=== PATIENT | female | born 1970 | race Asian ===

== ENCOUNTER 2016-12-25 10:34 | Emergency (ER) | payer OTHER ==
[~2016-12-25] VITALS: Ht 154.9 cm; Wt 95.7 kg
[2016-12-25 10:55] VITALS: TEMP 99.1
[2016-12-25 15:45] VITALS: BP 126/84
== END 2016-12-25 15:45 | disposition home or self-care (01) ==
LOC: ED 10:34
DX: R10.9 Unspecified abdominal pain (principal)
CPT/HCPCS: 81000; 96372; 99283; J1885; J2405

== ENCOUNTER 2018-04-16 22:51 | Inpatient (IN) | payer OTHER ==
[~2018-04-16] VITALS: Ht 154.9 cm; Wt 97.7 kg
[2018-04-16 22:57] VITALS: BP 137/62; TEMP 100.6
[2018-04-16] MEDS ORDERED: LISINOP/HCTZ1 TA2 PO (23:03)
[2018-04-16 23:41] LABS: PLATELET COUNT 355 K/uL (152-353)
[2018-04-16 23:49] LABS: POTASSIUM 2.6 mmol/L (3.6-5.2)
[2018-04-17 05:24] VITALS: BP 129/83; TEMP 99.4
[2018-04-17 10:20] VITALS: BP 129/83; TEMP 99.4; Ht 154.9 cm; Wt 97.7 kg
[2018-04-17 12:04] VITALS: BP 116/70; TEMP 98.7
[2018-04-17 16:24] VITALS: BP 19/65; TEMP 98.6
[2018-04-17 20:00] VITALS: BP 109/74; TEMP 99
[2018-04-18 00:03] VITALS: BP 97/62; TEMP 98.7
[2018-04-18 04:00] VITALS: BP 97/60; TEMP 99
--- NOTE | 2018-04-18 06:54 | NUR ---
04/18/18 0500: ATTEMPTED TO RESTART IV, VEIN FINDER USED ,STUCK X1 BUT PT WANTED IV REMOVED AND DID NOT WANT TO BE STUCK AGAIN.
[2018-04-18 08:01] VITALS: BP 120/79; TEMP 98.5
[2018-04-18 10:27] LABS: PLATELET COUNT 298 K/uL (152-353)
[2018-04-18 12:03] VITALS: BP 96/61; TEMP 98.5
[2018-04-18 16:03] VITALS: BP 117/76; TEMP 98.1
[2018-04-18 19:57] VITALS: BP 125/72; TEMP 98.5
[2018-04-19] VITALS: BP 100/59; TEMP 97.9
[2018-04-19 04:06] VITALS: BP 102/60; TEMP 97.7
[2018-04-19 08:03] VITALS: BP 137/89; TEMP 98.6
[2018-04-19 08:41] LABS: PLATELET COUNT 304 K/uL (152-353)
[2018-04-19 08:55] LABS: POTASSIUM 3.8 mmol/L (3.6-5.2)
[2018-04-19] MEDS ORDERED: ZITHROMAX500 MG PO (10:19)
[2018-04-19] MEDS ORDERED: FLUC150T PO (10:21)
== END 2018-04-19 12:10 | disposition home or self-care (01) | DRG 194 ==
LOC: ED 22:51 → MED/SURG 04-17 00:25
PROVIDERS: Emergency Medicine; ADMIT Internal Medicine
DX: J18.8 Other pneumonia, unspecified organism (principal); K50.90 Crohn's disease, unspecified, without complications; E87.6 Hypokalemia; R51 Headache; I10 Essential (primary) hypertension; J02.0 Streptococcal pharyngitis
CPT/HCPCS: 36415; 80053; 84132; 85027; 87040; 87502; 87651; 94640; 94664; 94760; 96365; 99284; J0456; J0696; J1885; J3490

== ENCOUNTER 2018-06-24 19:46 | Emergency (ER) | payer OTHER ==
[~2018-06-24] VITALS: Ht 154.9 cm; Wt 95.3 kg
[~2018-06-24 19:46] MED LIST: FLUC150T PO; LISINOP/HCTZ1 TA2 PO; ZITHROMAX500 MG PO
[2018-06-24 21:08] LABS: PLATELET COUNT 376 K/uL (152-353)
[2018-06-24 21:26] LABS: POTASSIUM 2.7 mmol/L (3.6-5.2)
[2018-06-24 22:13] VITALS: BP 122/80; TEMP 98.1
== END 2018-06-24 22:19 | disposition home or self-care (01) ==
LOC: ED 19:46
PROVIDERS: Internal Medicine
DX: K59.00 Constipation, unspecified (principal); E87.6 Hypokalemia; R11.2 Nausea with vomiting, unspecified; R10.13 Epigastric pain
CPT/HCPCS: 36415; 74022; 80053; 82150; 83690; 85027; 96365; 96374; 96375; 99284; J2270; J2405

== ENCOUNTER 2018-08-30 05:17 | Emergency (ER) | payer OTHER ==
[~2018-08-30] VITALS: Ht 154.9 cm; Wt 95.3 kg
[2018-08-30 06:08] VITALS: BP 119/72; TEMP 98.8
== END 2018-08-30 06:09 | disposition home or self-care (01) ==
LOC: ED 05:17
DX: R05 Cough (principal); J01.90 Acute sinusitis, unspecified; J30.9 Allergic rhinitis, unspecified
CPT/HCPCS: 99281

== ENCOUNTER 2018-10-24 08:23 | Outpatient (CLI) | payer BC | END 2018-10-24 19:20 | disposition home or self-care (01) | LOC: MAMMO 08:23 | DX: Z12.31 Encounter for screening mammogram for malignant neoplasm of breast (principal) ==

== ENCOUNTER 2018-11-05 14:56 | Outpatient (CLI) | payer BC | END 2018-11-05 23:42 | disposition home or self-care (01) | LOC: MAMMO 14:56 | DX: R92.8 Other abnormal and inconclusive findings on diagnostic imaging of breast (principal) ==

== ENCOUNTER 2021-05-24 07:28 | Outpatient (CLI) | payer BC ==
[2021-05-24 08:34] LABS: PLATELET COUNT 291 K/uL (152-353)
[2021-05-24 08:39] LABS: POTASSIUM 3.5 mmol/L (3.6-5.2)
== END 2021-05-24 20:50 | disposition home or self-care (01) ==
LOC: LABW 07:28
PROVIDERS: ATTEND Obstetrics & Gynecology Obstetrics
DX: E88.81 Metabolic syndrome and other insulin resistance (principal)
CPT/HCPCS: 36415; 80053; 80061; 83525; 84550; 85027

== ENCOUNTER 2021-05-26 21:03 | Emergency (ER) | payer BC ==
[~2021-05-26] VITALS: Ht 154.9 cm; Wt 99.8 kg
[2021-05-26 21:34] LABS: PLATELET COUNT 308 K/uL (152-353)
[2021-05-26 21:46] LABS: POTASSIUM 3.2 mmol/L (3.6-5.2)
[2021-05-26 23:58] VITALS: BP 126/82; TEMP 99.1
== END 2021-05-26 23:58 | disposition home or self-care (01) ==
LOC: ED 21:03
PROVIDERS: Hospitalist
DX: A05.9 Bacterial foodborne intoxication, unspecified (principal); R11.2 Nausea with vomiting, unspecified; R19.7 Diarrhea, unspecified
CPT/HCPCS: 80053; 81000; 83690; 85027; 96360; 96361; 96365; 96375; 99284; J1885; J1956; J2405

== ENCOUNTER 2021-05-27 06:49 | Emergency (ER) | payer BC ==
[~2021-05-27] VITALS: Ht 154.9 cm; Wt 99.8 kg
[2021-05-27 09:58] VITALS: BP 112/84; TEMP 16
== END 2021-05-27 10:10 | disposition home or self-care (01) ==
LOC: ED 06:49
DX: G44.209 Tension-type headache, unspecified, not intractable (principal); R11.2 Nausea with vomiting, unspecified
CPT/HCPCS: 96360; 96361; 96374; 96375; 99284; J1200; J1885; J2405